=== PATIENT | female | born 2000 | race Caucasian/White ===

== ENCOUNTER 2021-01-13 16:20 | Emergency (ER) | payer BC ==
[~2021-01-13] VITALS: Ht 162.6 cm; Wt 90.9 kg
[2021-01-13 16:33] VITALS: BP 123/73
[2021-01-13] MEDS ORDERED: METHOCARBAMOL 750 MG TABLET PO ONE (17:00)
--- NOTE | 2021-01-13 18:45 | NUR ---
DISCUSSED OPTIONS W/ PT IN REGARDS TO WAITING FOR A ROOM TO BE MEDICATED W/ BARBRAN OR DC HOME W/ RX. PT DECIDED TO GO HOME W/ RX. EDUCATED ON MEDICATION AND PROVIDED W/ DC PAPERWORK.
== END 2021-01-13 18:47 | disposition home or self-care (01) ==
LOC: ED 18:41
DX: S39.012A Strain of muscle, fascia and tendon of lower back, initial encounter (principal); X50.0XXA Overexertion from strenuous movement or load, initial encounter; Y93.89 Activity, other specified; Y92.89 Other specified places as the place of occurrence of the external cause; Y99.8 Other external cause status
CPT/HCPCS: 72110; 99283